=== PATIENT | male | born 1985 | race African-American/Black ===

== ENCOUNTER 2017-03-25 01:15 | Emergency (ER) | payer OTHER ==
[2017-03-25] MEDS ORDERED: Adacel (T-DAP) 0.5 ML VIAL ONE (01:32)
[2017-03-25] MEDS ORDERED: Lidocaine 1% 20 ML MDV ONE (01:38)
[2017-03-25] MEDS ORDERED: Bacitracin Zinc 1 Packet ONE (02:14)
== END 2017-03-25 02:32 | disposition home or self-care (01) ==
LOC: NAV ERS 01:15
DX: S81.812A Laceration without foreign body, left lower leg, initial encounter (principal); F17.210 Nicotine dependence, cigarettes, uncomplicated; W26.8XXA Contact with other sharp object(s), not elsewhere classified, initial encounter
CPT/HCPCS: 12002; 90471; 90715; J2001

== ENCOUNTER 2017-04-01 11:02 | Emergency (ER) | payer OTHER | END 2017-04-01 11:22 | disposition home or self-care (01) | LOC: NAV ERS 11:02 | DX: S81.812D Laceration without foreign body, left lower leg, subsequent encounter (principal); F17.210 Nicotine dependence, cigarettes, uncomplicated | CPT/HCPCS: 99282 ==

== ENCOUNTER 2017-04-09 20:48 | Emergency (ER) | payer OTHER ==
[2017-04-09] MEDS ORDERED: Bacitracin Zinc 1 Packet ONE (21:11)
== END 2017-04-09 21:15 | disposition home or self-care (01) ==
LOC: NAV ERS 20:48
DX: S81.812D Laceration without foreign body, left lower leg, subsequent encounter (principal); F17.210 Nicotine dependence, cigarettes, uncomplicated
CPT/HCPCS: 99281

== ENCOUNTER 2025-03-28 00:25 | Emergency (ER) | payer OTHER ==
[2025-03-28] MEDS ORDERED: Fluorescein Opthalmic Strip ONE (00:59)
[2025-03-28] MEDS ORDERED: Tetracaine 0.5% PF 4 ML BOT ONE (00:59)
[2025-03-28] MEDS ORDERED: cloNIDine 0.1 MG TAB ONE ×2 (01:16→02:26)
== END 2025-03-28 03:14 | disposition home or self-care (01) ==
LOC: NAV ERS 00:25
DX: H57.12 Ocular pain, left eye (principal); I10 Essential (primary) hypertension; F17.210 Nicotine dependence, cigarettes, uncomplicated
CPT/HCPCS: 99283